=== PATIENT | female | born 1980 | race Caucasian/White ===

== ENCOUNTER 2016-10-18 22:25 | Emergency (ER) | payer OTHER ==
[2016-10-19 01:25] LABS: BASOPHIL % 0.7 % (0-2); PLATELET COUNT 242 x10^3mcL (130-400)
[2016-10-19 01:26] LABS: RED CELL DISTRIBUTION WIDTH 15.2 % (11.5-14.5)
[2016-10-19 01:33] LABS: CALCIUM 8.7 mg/dL (8.5-10.1); CARBON DIOXIDE 26.6 mmol/L (21-32); CHLORIDE SERUM 105 mmol/L (98-107); CREATININE SERUM 0.5 mg/dL (0.6-1.0); GFR1 > 60 mL/min; GLUCOSE SERUM 82 mg/dL (74-106); POTASSIUM SERUM 3.9 mmol/L (3.5-5.1); SODIUM SERUM 139 mmol/L (136-145)
[2016-10-19 01:35] LABS: T3 TOTAL 1.02 ng/mL
[2016-10-19 01:38] LABS: ALBUMIN 3.1 g/dL (3.4-5.0); ALKALINE PHOSPHATASE 80 U/L (46-116); ALT/SGPT 15 U/L (14-59); AST/SGOT 13 U/L (15-37); BILIRUBIN TOTAL 0.6 mg/dL (0.20-1.00); CHOLESTEROL 128 mg/dL (<200); HDL CHOLESTEROL 63 mg/dL (40-60); LIPASE 219 IU/L (73-393); TOTAL PROTEIN, SERUM 6.8 g/dL (6.4-8.2); TRIGLYCERIDES 42 mg/dL (<150)
[2016-10-19 01:42] LABS: FREE THYROXINE INDEX 1.8 ug/dL (1.4-4.5); T4(THYROXINE) 5.2 ug/dL (4.7-13.3)
[2016-10-19 02:30] LABS: UA SPECIFIC GRAVITY 1.015 (1.005-1.035); urine erythrocyte NEGATIVE (NEGATIVE)
[2016-10-19 02:37] LABS: microscopic required? YES
[2016-10-19 05:34] VITALS: BP 128/80
== END 2016-10-19 05:34 | disposition home or self-care (01) ==
LOC: ED 22:25
PROVIDERS: Specialist
DX: K59.00 Constipation, unspecified (principal)
CPT/HCPCS: 83880; 84439; J1885; J3010; Q0092

== ENCOUNTER 2018-12-09 23:57 | Emergency (ER) | payer OTHER ==
[~2018-12-09] VITALS: Ht 149.9 cm; Wt 41.4 kg
[2018-12-10] VITALS: Ht 149.9 cm; Wt 41.4 kg
[2018-12-10 01:15] LABS: BASOPHIL % 1.7 % (0-2); PLATELET COUNT 354 x10^3mcL (130-400)
[2018-12-10 01:20] LABS: RED CELL DISTRIBUTION WIDTH 15.3 % (11.5-14.5)
[2018-12-10 01:24] LABS: CALCIUM 8.2 mg/dL (8.5-10.1); CARBON DIOXIDE 25.9 mmol/L (21-32); CHLORIDE SERUM 109 mmol/L (98-107); CREATININE SERUM 0.6 mg/dL (0.6-1.0); GFR1 > 60 mL/min; GLUCOSE SERUM 103 mg/dL (74-106); POTASSIUM SERUM 3.8 mmol/L (3.5-5.1); SODIUM SERUM 144 mmol/L (136-145)
[2018-12-10 01:29] LABS: ALKALINE PHOSPHATASE 71 U/L (46-116); ALT/SGPT 16 U/L (14-59); AST/SGOT 10 U/L (15-37); BILIRUBIN TOTAL 0.73 mg/dL (0.20-1.00); LIPASE 136 IU/L (73-393); TOTAL PROTEIN, SERUM 7.1 g/dL (6.4-8.2)
[2018-12-10 01:32] LABS: ALBUMIN 3.1 g/dL (3.4-5.0)
[2018-12-10 02:47] VITALS: BP 135/68
== END 2018-12-10 02:47 | disposition home or self-care (01) ==
LOC: ED 23:57
DX: R10.84 Generalized abdominal pain (principal); M54.5 Low back pain; F17.210 Nicotine dependence, cigarettes, uncomplicated
CPT/HCPCS: 99406; J1885; Q0092

== ENCOUNTER 2018-12-11 06:13 | Emergency (ER) | payer OTHER ==
[~2018-12-11] VITALS: Ht 149.9 cm; Wt 40.5 kg
[2018-12-11 06:18] VITALS: Ht 149.9 cm; Wt 40.5 kg
[2018-12-11 07:39] LABS: BASOPHIL % 0.5 % (0-2); PLATELET COUNT 332 x10^3mcL (130-400)
[2018-12-11 07:51] LABS: RED CELL DISTRIBUTION WIDTH 15.2 % (11.5-14.5)
[2018-12-11 08:31] LABS: CALCIUM 7.8 mg/dL (8.5-10.1); CARBON DIOXIDE 27.3 mmol/L (21-32); CHLORIDE SERUM 104 mmol/L (98-107); CREATININE SERUM 0.5 mg/dL (0.6-1.0); GFR1 > 60 mL/min; GLUCOSE SERUM 97 mg/dL (74-106); POTASSIUM SERUM 3.6 mmol/L (3.5-5.1); SODIUM SERUM 141 mmol/L (136-145)
[2018-12-11 08:37] LABS: ALKALINE PHOSPHATASE 62 U/L (46-116); ALT/SGPT 14 U/L (14-59); AST/SGOT 12 U/L (15-37); BILIRUBIN TOTAL 0.8 mg/dL (0.20-1.00); LIPASE 86 IU/L (73-393); TOTAL PROTEIN, SERUM 7.1 g/dL (6.4-8.2)
[2018-12-11 11:40] VITALS: BP 128/64
== END 2018-12-11 11:40 | disposition home or self-care (01) ==
LOC: ED 06:13
PROVIDERS: Emergency Medicine
DX: K59.00 Constipation, unspecified (principal)
CPT/HCPCS: 36415; J1885; J2270

== ENCOUNTER 2018-12-28 01:39 | Emergency (ER) | payer OTHER ==
[~2018-12-28] VITALS: Ht 149.9 cm; Wt 39.9 kg
[2018-12-28 01:43] VITALS: Ht 149.9 cm; Wt 39.9 kg
[2018-12-28 02:47] LABS: microscopic required? NO
[2018-12-28 02:52] LABS: urine erythrocyte NEGATIVE (NEGATIVE)
[2018-12-28 02:59] LABS: BASOPHIL % 0.2 % (0-2)
[2018-12-28 03:00] LABS: PLATELET COUNT 414 x10^3mcL (130-400)
[2018-12-28 03:10] LABS: CALCIUM 8.2 mg/dL (8.5-10.1); CHLORIDE SERUM 106 mmol/L (98-107); CREATININE SERUM 0.6 mg/dL (0.6-1.0); GFR1 > 60 mL/min; GLUCOSE SERUM 101 mg/dL (74-106); POTASSIUM SERUM 3.4 mmol/L (3.5-5.1); SODIUM SERUM 140 mmol/L (136-145)
[2018-12-28 03:14] LABS: ALBUMIN 3.2 g/dL (3.4-5.0); ALKALINE PHOSPHATASE 59 U/L (46-116); ALT/SGPT 13 U/L (14-59); AMYLASE 39 U/L (25-115); AST/SGOT 12 U/L (15-37); BILIRUBIN TOTAL 2.64 mg/dL (0.20-1.00); LIPASE 93 IU/L (73-393); TOTAL PROTEIN, SERUM 6.8 g/dL (6.4-8.2)
[2018-12-28 04:44] VITALS: BP 128/69
== END 2018-12-28 04:44 | disposition home or self-care (01) ==
LOC: ED 01:39
PROVIDERS: Emergency Medicine
DX: S39.012A Strain of muscle, fascia and tendon of lower back, initial encounter (principal); K21.9 Gastro-esophageal reflux disease without esophagitis; X58.XXXA Exposure to other specified factors, initial encounter; Y93.89 Activity, other specified; Y92.89 Other specified places as the place of occurrence of the external cause; Y99.8 Other external cause status
CPT/HCPCS: C9113; J1885; J7030

== ENCOUNTER 2019-04-17 11:04 | Emergency (ER) | payer OTHER ==
[~2019-04-17] VITALS: Ht 149.9 cm; Wt 35.8 kg
[2019-04-17 11:10] VITALS: Ht 149.9 cm; Wt 35.8 kg
[2019-04-17 12:22] LABS: BASOPHIL % 1.4 % (0-2)
[2019-04-17 12:26] LABS: PLATELET COUNT 456 x10^3mcL (130-400); RED CELL DISTRIBUTION WIDTH 19.9 % (11.5-14.5)
[2019-04-17 12:53] LABS: AMPHETAMINE QUAL UR NONE DETECTED (See below)
[2019-04-17 14:17] LABS: CARBON DIOXIDE 24.4 mmol/L (21-32); CREATININE SERUM 1.1 mg/dL (0.6-1.0)
[2019-04-17 14:21] LABS: ALBUMIN 2.9 g/dL (3.4-5.0); BILIRUBIN TOTAL 0.4 mg/dL (0.20-1.00); TOTAL PROTEIN, SERUM 6.8 g/dL (6.4-8.2)
[2019-04-17 15:32] VITALS: BP 129/69
== END 2019-04-17 15:32 | disposition home or self-care (01) ==
LOC: ED 11:04
PROVIDERS: Emergency Medicine
DX: R10.84 Generalized abdominal pain (principal); E87.6 Hypokalemia
CPT/HCPCS: 36415; J1885

== ENCOUNTER 2019-04-22 10:41 | Inpatient (IN) | payer OTHER ==
[~2019-04-22] VITALS: Ht 149.9 cm; Wt 36.4 kg
[2019-04-22 11:21] LABS: BILIRUBIN TOTAL 0.24 mg/dL (0.20-1.00); CALCIUM 10.1 mg/dL (8.5-10.1); CARBON DIOXIDE 28.8 mmol/L (21-32); CREATININE SERUM 1.5 mg/dL (0.6-1.0); TOTAL PROTEIN, SERUM 7.2 g/dL (6.4-8.2)
[2019-04-22 11:22] LABS: ALBUMIN 2.9 g/dL (3.4-5.0)
[2019-04-22 11:23] LABS: POTASSIUM SERUM 2.7 mmol/L (3.5-5.1)
[2019-04-22 11:46] LABS: BASOPHIL % 0.4 % (0-2)
[2019-04-22 11:55] LABS: PLATELET COUNT 437 x10^3mcL (130-400)
[2019-04-22 12:12] LABS: PHOSPHOROUS 4.2 mg/dL (2.5-4.9); T4(THYROXINE) 7.3 ug/dL (4.7-13.3)
--- NOTE | 2019-04-22 12:12 | NUR ---
PT ADMITTED (TELE/224B). REPORT CALLED TO JESSEE MILTON. OPPORTUNITY GIVEN TO ASK QUESTIONS. PT BEING TRANSPORTED TO FLOOR BY RN AND EMT. FLOOR RN AWARE [facility] MED ADMINISTRATION PENDING POTASSIUM MED COMPLETION.
--- NOTE | 2019-04-22 12:50 | NUR ---
RECEIVED PT FROM E.R. REPORT GIVEN BY KARINE RAMIREZ. PT ARRIVED BY GURNEY AND AMBULATED TO THE BED. PT HAS BEEN ADMITTED FOR HYPOKALEMIA AND ANOREXIA. VS: T 98.3, HR 84, RR 18, B/P 180/79, O2 SAT 94% ON R/A. NATALIA MUTAC, BELTING CUTTER AWARE OF B/P OF 189/79. NO NEW ORDERS WERE GIVEN. PT WILL BE TREATED FOR PAIN AND NAUSEA. PT IS AAOX4. TELE [address] READING NSR. RESP EVEN AND UNLABORED. LUNG SOUNDS CTA BILATERALLY. ON R/A. NO COUGH NOTED. PERIPHERAL PULSES MODERATELY PALPABLE. NO EDEMA. CAP REFILL < 3 SECS. SKIN WARM AND DRY. ABDOMEN SOFT, FLAT, TENDER WITH C/O SHARP CONSTANT ABDOMINAL PAIN 6/10. PT HAS C/O NAUSEA AND VOMITING. BOWEL SOUNDS HYPOACTIVE. PT HAS BROWNISH DISCOLORATION TO ABDOMEN THAT PT STATES IS FROM USING THE HEATING PAD ON IT. IV CATH TO RAC WITH FLUIDS RUNNING. SITE WNL. NO S/S OF INFECTION OR INFILTRATION. CALL LIGHT WITHIN REACH. WILL CONTINUE TO MONITOR. PT ORIENTED TO ROOM AND CALL LIGHT. WILL CONTINUE TO MONITOR.
[2019-04-22 13:25] VITALS: BP 180/79
--- NOTE | 2019-04-22 14:12 | NUR ---
TORADOL IVP GIVEN FOR SHARP CONSTANT ABDOMINAL PAIN 7/1O. PT REPOSITIONED FOR COMFORT. ZOFRAN IVP GIVEN FOR NAUSEA. RESP EVEN AND UNLABORED. PT DENIES C/P AND PRESSURE. CALL LIGHT WITHIN REACH. WILL CONTINUE TO MONITOR.
[2019-04-22 15:24] LABS: microscopic required? YES; urine erythrocyte NEGATIVE (NEGATIVE)
[2019-04-22 15:36] VITALS: BP 146/75
[2019-04-22 16:46] LABS: AMPHETAMINE QUAL UR NONE DETECTED (See below)
--- NOTE | 2019-04-22 17:45 | NUR ---
REPORTED TO NATALIA MODI NP THAT PT'S PAIN IS 7/10 AND TORADOL IVP HAS ALREADY BEEN GIVEN. RECEIVED ORDER FOR NORCO 5/325MG PO Q 6 HOURS PRN. ORDER NOTED AND CARRIED OUT. PT GIVEN NORCO 5/325MG PO FOR THROBBING ABDOMINAL PAIN /10. EXTRA FLUID GIVEN. PT REPOSTIONED FOR COMFORT. RESP EVEN AND UNLABORED. NO DISTRESS NOTED. CALL LIGHT WITHIN REACH.
--- NOTE | 2019-04-22 18:46 | NUR ---
PT IS AAOX4. TELE [address] READING NSR. IV CATH TO RAC PATENT WITH FLUIDS RUNNING. SITE WNL. NO S/S OF INFECTION OR INFILTRATION NOTED. PT DENIES PAIN AT THIS TIME. NO DISTRESS NOTED. CALL LIGHT WITHIN REACH.
--- NOTE | 2019-04-22 19:05 | NUR ---
RECEIVED REPORT FROM DAY SHIFT NURSE, JESSEE MILTON. PT IS AAOX4. SPEECH IS CLEAR. DENIES POWERS. ON TELE #21 READING NSR 84. DENIES CHEST PAIN/CHEST PRESSURE. PULSES ARE PALPABLE. NO EDEMA NOTED. BREATHING IS EVEN AND UNLABORED ON RA. LUNG SOUNDS CTA. DENIES SOB. ABD IS SOFT, NONDISTENDED, TENDER TO TOUCH. HYPOACTIVE BOWEL SOUNDS. DENIES N/V/D. VOIDS FREELY. DENIES DYSURIA. MILD GENERALIZED WEAKNESS. AMBULATORY. DISCOLORATION ON ABD. C/O 8/10 SHARP ABD PAIN. WILL MEDICATE PER MAR ORDER. IV TO RAC DRY AND INTACT. NO ERYTHEMA NOTED. BED IN LOWEST POSITION. CALL LIGHT WITHIN REACH. WILL CONTINUE TO MONITOR.
--- NOTE | 2019-04-22 19:23 | NUR ---
TORADOL IVP GIVEN FOR PAIN 09/15. RESP EVEN AND UNLABORED. CALL LIGHT WITHIN REACH.
[2019-04-22 20:31] VITALS: BP 152/75
--- NOTE | 2019-04-22 21:28 | NUR ---
PT IS C/O 11/15 SHARP PAIN ON ABD AND BACK. PAIN MEDICATION IS NOT DUE AT THIS TIME. SPOKE WITH DR GIMENEZ. AWAITING ORDERS. PT AWARE OF SPEAKING WITH . BREATHING IS EVEN AND UNLABORED ON RA. NO SIGNS OF RESP. DISTRESS. BED IN LOWEST POSITION. CALL LIGHT WITHIN REACH. WILL CONTINUE TO MONITOR.
--- NOTE | 2019-04-22 23:10 | NUR ---
NEW ORDERS FOR ABX FOR +UA. NO ADVERSE EFFECTS NOTED. NORCO ADMINISTERED AT THIS TIME FOR 10/15 PAIN ON ABD AND BACK. WILL REASSESS AND CHECK EFFECTIVENESS. BREATHING IS EVEN AND UNLABORED ON RA. NO SIGNS OF RESP. DISTRESS. HEATING PAD GIVEN FOR ABD. BED IN LOWEST POSITION. CALL LIGHT WITHIN REACH. WILL CONTINUE TO MONITOR.
--- NOTE | 2019-04-23 01:25 | NUR ---
PT C/O 10/15 SHARP ABD AND BACK PAIN. MEDICATED WITH TORADOL PRN PER JUN ORDER. WILL REASSESS AND CHECK EFFECTIVENESS. BREATHING IS EVEN AND UNLABORED ON RA. DENIES SOB. BED IN LOWEST POSITION. CALL LIGHT WITHIN REACH. WILL CONTINUE TO MONITOR.
--- NOTE | 2019-04-23 03:38 | NUR ---
PT IS RESTING COMFORTABLY IN BED WITH EYES CLOSED, BUT EASILY AROUSABLE WHEN SPOKEN TO. BREATHING IS EVEN AND UNLABORED ON RA. NO SIGNS OF RESP. DISTRESS. BED IN LOWEST POSITION. CALL LIGHT WITHIN REACH. WILL CONTINUE TO MONITOR.
[2019-04-23 05:09] VITALS: BP 94/58
--- NOTE | 2019-04-23 05:45 | NUR ---
PT SLEPT IN INTERVALS THROUGHOUT THE NIGHT AND COMPLIED WITH NURSING CARE WITH NO ACUTE EVENTS OCCURRING DURING THE SHIFT. COMFORT AND SAFETY MEASURES MAINTAINED. ALL NEEDS ASSESSED AND ATTENDED TO. WILL CONTINUE TO MONITOR AND ENDORSE CARE TO DAY SHIFT NURSE.
[2019-04-23 07:01] LABS: BASOPHIL % 0.8 % (0-2); PLATELET COUNT 304 x10^3mcL (130-400)
[2019-04-23 07:19] LABS: CARBON DIOXIDE 28.4 mmol/L (21-32); CHLORIDE SERUM 105 mmol/L (98-107); CREATININE SERUM 0.6 mg/dL (0.6-1.0); GFR1 > 60 mL/min; GLUCOSE SERUM 85 mg/dL (74-106); SODIUM SERUM 139 mmol/L (136-145)
[2019-04-23 07:21] LABS: POTASSIUM SERUM 2.5 mmol/L (3.5-5.1)
--- NOTE | 2019-04-23 07:28 | NUR ---
REPORTED TO NATALIA MODI, WILLIAM K+ = 2.5. RECEIVED ORDER FOR KCL 50 MEQ PO X1 NOW. ORDER NOTED AND CARRIED OUT. PT MADE AWARE.
--- NOTE | 2019-04-23 07:30 | NUR ---
PT IS AAOX4. TELE [address] READING NSR. IV CATH OT RAC PATENT WITH FLUIDS RUNNING. SITE WNL, NO S/S OF INFECTION OR INFILTRATION NOTED. PT DENIES ABDOMINAL PAIN AT THIS TIME. PT NOTED WITH POOR APPETITE. CALL LIGHT WITHIN REACH. BED IN LOWEST POSITION.
[2019-04-23 07:42] LABS: RED CELL DISTRIBUTION WIDTH 21.3 % (11.5-14.5)
--- NOTE | 2019-04-23 08:08 | NUR ---
KCL 40MEQ PO GIVEN FOR K+ = 2.5. PT DENIES C/P, PRESSURE, AND ABDOMINAL PAIN. SCHEDULED MEDS GIVEN AND TOLERATED WELL. NO DISTRESS NOTED AT THIS TIME. CALL LIGHT WITHIN REACH.
[2019-04-23 08:28] VITALS: BP 97/56
--- NOTE | 2019-04-23 11:03 | NUR ---
MAGNESIUM SULFATE IVPB GIVEN FOR MAG = 1.7. PT DENIES PAIN AT THIS TIME. HEATING PAD IN PLACE ABDOMEN AT THIS TIME.
[2019-04-23 11:49] LABS: burr cell (echinocyte) 1+; ovalocyte/elliptocyte 1+; rbc morphology (normal/abnorm) ABNORMAL (NORMAL)
[2019-04-23 12:08] VITALS: BP 94/53
[2019-04-23 12:30] VITALS: BP 141/90
--- NOTE | 2019-04-23 12:30 | NUR ---
FIRST UNIT OF 2 UNITS PRBC STARTED. VS: T 101.8, HR 91, RR 26, BP 141/90 (107). PT ON NONREBREATHER AT [address]PM[address] COOLING MEASURES IN PLACE. PT EDUCATED ON THE S/S OF BLOOD TRANSFUSION REACTION. PT VERBALIZED UNDERSTANDING. PT RECEIVING BREATHING TX AT THIS TIME. WILL CONTINUE TO MONITOR. CALL LIGHT WITHIN REACH.
--- NOTE | 2019-04-23 12:43 | NUR ---
PT STARTED ON OXIMIZER AT 5 LPM. PT O2 SAT =96%. WILL CONTINUE TO MONITOR.
--- NOTE | 2019-04-23 14:16 | NUR ---
NORCO PO GIVEN TO PT FOR ABDOMINAL PAIN 09/15. WARM COMPRESS IN PLACE. RESP EVEN AND UNLABORED. NO DISTRESS NOTED.
[2019-04-23 15:51] VITALS: BP 101/60
--- NOTE | 2019-04-23 16:15 | NUR ---
NORCO PO GIVEN TO PT FOR ABDOMINAL PAIN 09/15. WARM COMPRESS IN PLACE. RESP EVEN AND UNLABORED. NO DISTRESSN NOTED.
--- NOTE | 2019-04-23 18:16 | NUR ---
DR. CASTELLANOS MET WITH PT, PT TO HAVE EGD TOMORROW. PT AAOX4. RESP EVEN AND UNLABORED. NO DISTRESS NOTED. WILL ENDORSE ALL CARE TO NOC RN.
--- NOTE | 2019-04-23 18:25 | NUR ---
15 MIN OF BLOOD TRANSFUSION COMPLETED. VS; 99.2, 100, 27, 141/63, 98%. NO S/S OF TRANSFUSION REACTIONS NOTED. DENIES PAIN. PT IS AAOX4. OXIMIZER AT 5 LPM INTACT. IV CATH LH AND RH PATENT, WNL. TELE [address] READING AFIB WITH BPC AND DEPRESSED T WAVE. BLOOD TRANSFUSION INFUSING AT THIS TIME. CALL LIGHT WITHIN REACH. BED IN LOWEST POSTION.
[2019-04-23 18:50] LABS: IRON 12 ug/dL (50-170); TOTAL IRON BINDING CAPACITY 197 ug/dL (250-450)
--- NOTE | 2019-04-23 18:52 | NUR ---
PT GIVEN FLEETS ENEMA, REGLAN AND MOM AT THIS TIME.
--- NOTE | 2019-04-23 19:30 | NUR ---
PT SEEN, RESTING IN BED, ALERT AND ORIENTED, DENIES HEADACHE OR DIZZINESS, BREATHING EVEN AND UNLABORED, LUNG SOUNDS CLEAR, ON ROOM AIR WITH NO RESP DISTRESS NOTED, ON TELE#21 NSR, DENIES CHEST PAIN, IVF INFUSING WELL, PULSES PALPABLE, NO EDEMA NOTED, GENERALIZED WEAKNESS BUT ABLE TO AMBULATE, ABD SOFT AND FLAT WITH ACTIVE BS, HAD MULTIPLE BM AFTER ENEMA, VOIDING FREELY, NO DISTRESS NOTED, WILL KEEP TO MONITOR.
[2019-04-23 20:37] VITALS: BP 108/59
[2019-04-24] VITALS (9 sets, daily range): BP systolic 91–122; BP diastolic 49–70
--- NOTE | 2019-04-24 05:52 | NUR ---
PT ASLEEP BUT EASILY AROUSABLE, SLEPT MOST OF NIGHT, NPO AFTER MN FOR AM EGD, IVF INFUSING WELL, NSR ON SUPERVISOR ELECTROLYTIC TINNING, NO C/O OF ABD PAIN OR N/V DURING THE SHIFT, NO DISTRESS NOTED, WILL KEEP TO MONITOR.
--- NOTE | 2019-04-24 07:18 | NUR ---
BEDSIDE HANDOFF REPORT GIVEN TO DHRUV-RN, ALL QUESTIONS ANSWERED AND CONCERNS ADDRESSED. PT IS AWAKE AND RESTING IN BED, DENIES ANY PAIN OR DISCOMFORT AT THIS TIME, POC DISCUSSED.
--- NOTE | 2019-04-24 07:40 | NUR ---
PATIENT SITTING UP IN BED A&O X4, DENIES ANY PAIN AT THIS TIME. IV ON RAC PATENT AND INTACT NO REDNESS OR EDEMA. NO S/S OF ANY RESPIRATORY DISTRESS, CHEST RISE EQUAL AND UNLABORED. ALL QUESTIONS AND CONCERNS AT THIS TIME. PATIENT NPO FOR PROCEDURE. BED IN LOWEST POSITION CALL LIGHT WITHIN REACH. WILL CONTINUE TO MONITOR.
[2019-04-24 09:27] LABS: BASOPHIL % 1.1 % (0-2)
[2019-04-24 09:29] LABS: PLATELET COUNT 304 x10^3mcL (130-400)
[2019-04-24 09:32] LABS: RED CELL DISTRIBUTION WIDTH 21.6 % (11.5-14.5)
--- NOTE | 2019-04-24 09:45 | NUR ---
Administered scheduled meds per mar patient tolerated well no adverse reactions noted. All needs attended to at this time. Patient denies any abd pain at this time. No s/s of any acute distress. Bed in lowest position call liht within reach. Will continue to monitor.
--- NOTE | 2019-04-24 10:09 | NUR ---
NATALIA BINDERY OPERATOR NOTIFIED OG HGB 6.3, HCT 19 PER NATALIA TO TRANSFUSE BLOOD. PATIENT TEACHING GIVEN PATIENT VERBALIZED UNDERSTANDING WILL PROCEED WITH ORDER.
--- NOTE | 2019-04-24 10:30 | NUR ---
PATIENT DOWN TO G.I. FOR EGD
[2019-04-24 10:33] LABS: CARBON DIOXIDE 28 mmol/L (21-32); CHLORIDE SERUM 112 mmol/L (98-107); GLUCOSE SERUM 86 mg/dL (74-106); POTASSIUM SERUM 3.6 mmol/L (3.5-5.1); SODIUM SERUM 145 mmol/L (136-145)
[2019-04-24 10:34] LABS: CALCIUM 7.3 mg/dL (8.5-10.1); CREATININE SERUM 0.4 mg/dL (0.6-1.0); GFR1 > 60 mL/min; MAGNESIUM 1.6 mg/dL (1.8-2.4)
[2019-04-24 10:58] LABS: ovalocyte/elliptocyte 1+; rbc morphology (normal/abnorm) ABNORMAL (NORMAL)
--- NOTE | 2019-04-24 12:00 | NUR ---
PATIENT BACK FROM EGD V/S STABLE NO ACUTE DISTRESS NOTED. PATIENT DENIES ANY PAIN AT THIS TIME. ALL QUESTIONS AND CONCERNS ADDRESSED WITH SISTER WELL. BED IN LOWEST POSITION CALL LIGHT WITHIN REACH. WILL CONTINUE TO MONITOR.
--- NOTE | 2019-04-24 12:43 | NUR ---
DR CASTELLANOS UPDATING PATIENT ON CARE WITH SISTER AT BEDSIDE
--- NOTE | 2019-04-24 14:35 | NUR ---
PATIENT LYING IN BED WITH EYES CLOSED, DENIES N/V TOLERATED LUNCH OF CLEAR LIQUIDS WELL. ALL NEEDS ATTENDED TO. BED IN LOWEST POSITION CALL LIGHT WITHIN REACH. WILL CONTINUE TO MONITOR.
--- NOTE | 2019-04-24 15:38 | NUR ---
STARTED BLOOD TRANSFUSION VERIFIED WITH TOMY MILTON V/S STABLE WILL ASSESS FOR 15 MIN. EDUCATED PATIENT ON SIGNS TO LOOK FOR AND REPORT. ALL NEEDS ATTENDED TO AT THIS TIME.
--- NOTE | 2019-04-24 15:53 | NUR ---
15 MIN POST INFUSION START V/S STABLE NO S/S OF ANY ALLERGIC REACTION PATIENT LYING IN BED DENIES ANY PAIN OR N/V AT THIS TIME. FAMILY AT BEDSIDE. BED IN LOWEST POSITION CALL LIGHT WITHIN REACH. WILL CONTINUE TO MONITOR.
--- NOTE | 2019-04-24 16:20 | NUR ---
REPORTED HR 108 AND BP 91/45 TO NATALIA LOCOMOTIVE CRANE OPERATOR HELPER. NO NEW ORDERS AT THS TIME. WILL CONTINUE TO MONITOR
--- NOTE | 2019-04-24 17:58 | NUR ---
PATIENT MRSA CULTURE POSITIVE REPORTED TO NATLAIA THOMAS . PER NATALIA START ON HEBICLENS AND BECTROBAN BID. READ BACK AND CONFIRMED WILL CARRY ORDER OUT.
--- NOTE | 2019-04-24 18:37 | NUR ---
TRANSFUSION COMPLETE V/S STABLE PATIENT DENIES ANY REACTIONS NONE NOTED. EDUCATED FAMILY ON MRSA PRECAUTIONS FAMILY VERBALIZED UNDERSTANDING. IV PATENT AND INTACT NO REDNESS OR EDEMA. TELE MONITOR 21 ATTATCHED PATIENT DENIES ANY CHEST PAIN. NO S/S OF ANY RESPIRATORY DISTRESS, CHEST RISE EQUAL AND UNLABORED 100% ON RA. PATIENT LYING IN BED WITH EYES CLOSED. FAMILY AT BEDSIDE. ALL QUESTIONS AND CONCERNS ADDRESSED. SAFETY PRECAUTIONS IN PLACE. WILL ENDORSE CARE TO NIGHT NURSE.
--- NOTE | 2019-04-24 19:05 | NUR ---
REPORT RECEIVED FROM DAY SHIFT RN. PATIENT WAS SEEN RESTING COMFORTABLY IN BED W/ FAMILY AT BEDSIDE. NO DISTRESS NOTED. BREATHING EVEN AND UNLABORED ON ROOM AIR. NO SOB OR RESP DISTRESS. DENIES DIZZINESS AND HEADACHE. NO C/O PAIN. DENIES CHEST PAIN/PRESSURE. TELE 21. IV TO THE RAC INFUSING MAGNESIUM WELL. PATENT AND INTACT. NO REDNESS OR SWELLING NOTED. 1 UNIT OF PRBCS FINISHED DURING DAY SHIFT. AWAITING H/H LAB DRAW. COMFORT AND SAFETY MEASURES IN PLACE. BED IS LOCKED AND IN THE LOWEST POSITION. SIDE RAILS UP X2. CONTACT PRECAUTIONS IN PLACE. CALL LIGHT IS WITHIN REACH. WILL CONTINUE TO MONITOR.
--- NOTE | 2019-04-24 20:17 | NUR ---
AFTER 1 UNITS OF PRBCS, H/H IS 9.05/06. WILL NOTIFY DR MAI.
--- NOTE | 2019-04-25 00:11 | NUR ---
IN TO GIVE MIDNIGHT MED. PATIENT EASILY AROUSBLE. DENIES PAIN. BREATHING EVEN AND UNLABORED ON ROOM AIR. NO SOB NOTED. IVF INFUSING WELL. SAFETY MEASURES IN PLACE. CALL LIGHT IS WITHIN REACH. CALL LIGHT IS WITHIN REACH.
--- NOTE | 2019-04-25 02:15 | NUR ---
PATIENT ARRIVED VIA GUERNEY FROM ED ACCOMPANIED BY ED STAFF, NURSE, AND , CHRISSY. BELONGINGS AT BEDSIDE. ON DROPLET PRECAUTIONS FOR INFLUENZA B (+). PATIENT'S REPORTED PATIENT RECEIVED THE FLU VACCINE 4-5 WEEKS AGO. A/OX4, ABLE TO MAKE NEEDS KNOWN W/ CLEAR AND APPROPIATE SPEECH. NO FACIAL DROOP NOTED. DENIES DIZZINESS AND HEADACHE. TELE #12 READING SINUS TACH AT 103. DENIES CHEST PAIN/PRESSURE. PULSES PALPABLE. NO EDEMA NOTED. PATIENT'S SKIN IN PALE, COOL/MOIST TO TOUCH. PER , PATIENT LOOKS BETTER THAN WHEN HE CAME. GENERALIZED WEAKNESS NOTED. PER , PATIENT FELL LAST NIGHT TRYING TO GET OUT OF BED. PER , PATIENT HAS BEEN HAVING POOR APPETITE. PATIENT DENIES N/V. BREATHING EVEN AND UNLABORED ON 4L NC. NO SOB OR RESP DISTRESS NOTED. IV TO THE RH, 20G. PATENT AND INTACT. NO REDNESS OR SWELLING NOTED. WILL STAY THE NIGHT. OFFERED MASK, REFUSED. ORIENTED BOTH AND PATIENT TO ROOM, CALL LIGHT SYSTEM, AND BED CONTROLS. COMFORT AND SAFETY MEASURES IN PLACE. BED IS LOCKED AND IN THE LOWEST POSITION. SIDE RAILS UP X2. CALL LIGHT WITHIN REACH. WILL CONTINUE TO MONITOR
--- NOTE | 2019-04-25 04:31 | NUR ---
RESTING IN BED W/ EYES CLOSED. NO DISTRESS NOTED. IVF INFUSING WELL. PATENT AND INTACT. DENIES PAIN. BREATHING EVEN AND UNLABORED ON ROOM AIR. NO SOB NOTED. SAFETY MEAURES IN PLACE. CALL LIGHT WITHIN REACH. WILL CONTINUE TO MONITOR.
[2019-04-25 04:50] VITALS: BP 128/71
--- NOTE | 2019-04-25 06:20 | NUR ---
RESTED IN LONG INTERVALS THROUGHOUT THE NIGHT. NO ACUTE CHANGES NOTED. BREATHING EVEN AND UNLABORED ON ROOM AIR. NO SOB NOTED. NO DISTRESS NOTED. DENIES PAIN. DENIES CP. IV TO THE RAC INFUSING WELL. PATENT AND INTACT. NO REDNESS OR SWELLING NOTED. KPAD TO ABD. ALL NEEDS AND CONCERNS ADDRESSED. SAFETY MEASURES IN PLACE. WILL ENDORSE CARE TO DAY SHIFT RN.
--- NOTE | 2019-04-25 07:25 | NUR ---
RECEIVED PT FROM BOTTLE TESTER, ASSESSED AND DOCUMENTED. DENIES ANY PAIN THIS TIME. STABLE. SAFTEY PRECAUTIONS ARE IN PLACE. WILL MONITOR.
[2019-04-25 08:36] VITALS: BP 112/65
[2019-04-25 12:56] VITALS: BP 106/61
--- NOTE | 2019-04-25 13:00 | NUR ---
PT RESTING IN BED COMFORTABLY. DENIES PAIN THIS TIME. HAD LUNCH. STABLE.
--- NOTE | 2019-04-25 13:41 | NUR ---
Initial Nutrition Assessment: /A TELMA LOREDO IA HR Dx: Hypokalemia, anorexia with weight loss PMHx: abdominal pain PSHx: she states when she was a baby she had some heart surgery done. Labs: ALB 2.9L, MG 1.6L, HGB 9.1L Meds: norco, reglan, Tylenol, zofran Diet: full liquid diet PO intake since admission: (04/24) dinner, breakfast 0%, lunch 25%, (04/23) breakfast 80%, lunch, dinner 0% Ht: 149.86 cm (59") Wt: 36.4 kg (80#) BMI: 16.2 kg/m2 Bed scale: 80.5# IBW: 95# (43 kg) %IBW: 84 UBW: 96# Age: 38/F Food Allergies: NKFA Skin: abd discoloration Fredrick: 18 Edema: none GI: Last BM: 04/23 Per H&P, Pt is a 38-year old female who has a 4 day history of increase in abdominal pain. According to patient for a couple months now she has been losing weight. Patient states that she recently went to her PCP and referred her out to GI however, referral is still pending. Patient states that her baseline weight is 102lbs RD Note (04/25): Patient was alert and oriented and said that her appetite is coming back slowly. Patient denied any N/V/D/C at this time. Patient is willing to drink ONS Ensure and was requesting ONS Ensure clear at least once a day. Per EGD/ colonoscopy report (04/24), pt has large prepyloric ulcer, probably benign, most likely d/t NSAID use. FNS received consult for 'failure to thrive, nutritional supplements between meals'. Problem with: N/V/D/C: none Problems with: Chewing: Swallowing: none Current appetite: poor Recent wt change: lost 16# x 6 months %wt change: 16 Vitamin/Supplement use: none Special diet at home: Regular Physical activity: sedentary Nutrition education given: PO was encouraged. [facility] handout on 'High calorie, high protein nutrition therapy' was provided. Food-drug interactions: Education given: Estimated Nutritional Needs Based on current body weight (36.6 kg) Energy: 5646-3289 kcal/day (35-40 kcal/kg for malnutrition) Protein: 44-55 g/day (1.2-1.5 g/kg for malnutrition) Fluid: 5291-5175 mL/day (1 mL/kcal) Nutrition Diagnosis: 1. Malnutrition related to chronic poor PO as evidenced by BMI 16.2 kg/m2, unintentional weight loss. Intervention 1. Recommend continuing full liquid diet. 2. Recommend ONS Ensure TID. This will provide additional 1050 kcal and 60g protein. Discussed with WILLIAM Cook. Monitor/Evaluate Goal: PO intake at least 75% of estimated needs Monitor: PO intake, Labs, GI function F/U in 2-3 days as high risk 04/27-
--- NOTE | 2019-04-25 13:41 | NUR ---
1. Recommend continuing full liquid diet. 2. Recommend ONS Ensure TID. This will provide additional 1050 kcal and 60g protein. Discussed with WILLIAM Cook.
[2019-04-25 17:32] VITALS: BP 121/77
--- NOTE | 2019-04-25 19:00 | NUR ---
PT RESTING IN BED COMFORTABLY, STABLE. GAVE REPORT TO OCULARIST NURSE. DENIES ANY PAIN.
--- NOTE | 2019-04-25 19:15 | NUR ---
RECIEVED PT RESTING IN BED WITH NO ACUTE DISTRESS NOTED AT THIS TIME, ASSESSMENT PERFORMED AT THIS TIME, PT IS A/OX4 NO COMPLAINTS OF POWERS OR DIZZINESS AT THIS TIME, PT DENIES PAIN OR SOB AT THIS TIME, TELE 21 NSR, IV TO THE RAC 20G INFUSING D5/ 1/2 NS WITH 40 MEQ K+ AT 40ML PER HOUR, ALL PT NEEDS ATTENDED TO, SAFETY PRECAUTIONS IN PLACE, WILL CONTINUE TO MONITOR
[2019-04-25 22:15] VITALS: BP 134/75
--- NOTE | 2019-04-26 00:14 | NUR ---
PT RESTING IN BED WITH NO ACUTE DISTRESS AT THIS TIME, PT DENIES PAIN OR SOB, RESPIRATIONS EVEN AND UNLABORED, SAFETY PRECAUTIONS ON PLACE, WILL COTNINUE TO MONITOR
[2019-04-26 05:51] VITALS: BP 109/63
--- NOTE | 2019-04-26 06:28 | NUR ---
PT RESTED THROUGH THE NIGHT WITH NO ACUTE DISTRESS NOTED DURING CARE, PT DENIED ABD PAIN OR SOB THROUGH NIGHT, PT AMBULATED TO THE BATHROOM WITH STEADY GAIT AND HAD TWO VOIDS, VSS, ALL NEEDS ATTENDED TO, SAFETY PRECAUTIONS REMAINED IN PLACE, WILL CONTINUE TO MONITOR AND ENDORSE CARE
--- NOTE | 2019-04-26 07:20 | NUR ---
RECEIVED PT IN BED, ASSESSED AND DOCUMENTED. DENIES ANY PAIN THIS TIME. STABLE. SAFTEY PRECAUTIONS ARE IN PLACE. WILL MONITOR.
[2019-04-26 08:50] VITALS: BP 114/65
[2019-04-26 09:02] LABS: BASOPHIL % 0.3 % (0-2); PLATELET COUNT 344 x10^3mcL (130-400)
[2019-04-26] MEDS ORDERED: FER300 PO (09:08)
[2019-04-26] MEDS ORDERED: ELA25 PO (09:08)
[2019-04-26] MEDS ORDERED: LAC30L PO (09:09)
[2019-04-26] MEDS ORDERED: BACO TOP (09:10)
[2019-04-26] MEDS ORDERED: CARL PO (09:10)
[2019-04-26] MEDS ORDERED: PRI20 PO (09:10)
[2019-04-26 09:12] LABS: RED CELL DISTRIBUTION WIDTH 21.1 % (11.5-14.5)
--- NOTE | 2019-04-26 11:00 | NUR ---
PT IS AMBULATING TO THE RESTROOM WITH OUT ANY ASSISTANCE WITH STEADY GAIT. DENIES ANY PAIN. PT IS AWARE ABOUT SHE IS DISCHARGED. WAITING FOR HER MOTHER TO PICK HER UP. PT IS STABLE.
[2019-04-26 11:30] VITALS: BP 114/65
[2019-04-26 12:48] VITALS: BP 123/66
--- NOTE | 2019-04-26 13:25 | NUR ---
PT'S MOTHER CAME TO QUANTITATIVE STRATEGY ANALYST PT. DISCHARGE INSTRUCTIONS GIVEN, PB SIGNED AND SENT WITH PT. IV REMOVED AND DRESSING APPLIED. TELE REMOVED AND RETURNED. PT DENIES ANY PAIN. PRESCRIPTIONS SENT TO HER PHARMACY BY DOCTOR. OFFERED WHEELCHAIR BUT PT SAID SHE WANT TO WALK. DETACHER WALK WITH PT ACCOMPANIED BY HER MOTHER. PT DC HOME IN STABLE CONDITION.
[2019-04-30 15:22] VITALS: Ht 149.9 cm; Wt 36.4 kg
== END 2019-04-26 13:29 | disposition home or self-care (01) | DRG 241 ==
LOC: ED 10:41 → DU 11:45
PROVIDERS: Emergency Medicine; Internal Medicine Gastroenterology; ADMIT Internal Medicine
PROC: 0DB68ZX Excision of Stomach, Via Natural or Artificial Opening Endoscopic, Diagnostic (ICD-10-PCS; principal; 2019-04-24 12:00)
PROC: 30233N1 Transfusion of Nonautologous Red Blood Cells into Peripheral Vein, Percutaneous Approach (ICD-10-PCS; 2019-04-24 12:00)
DX: K25.9 Gastric ulcer, unspecified as acute or chronic, without hemorrhage or perforation (principal); E43 Unspecified severe protein-calorie malnutrition; K31.1 Adult hypertrophic pyloric stenosis; D64.9 Anemia, unspecified; E87.6 Hypokalemia; F17.210 Nicotine dependence, cigarettes, uncomplicated; K59.00 Constipation, unspecified; T39.395A Adverse effect of other nonsteroidal anti-inflammatory drugs [NSAID], initial encounter; K20.9 Esophagitis, unspecified; F41.9 Anxiety disorder, unspecified; Z80.9 Family history of malignant neoplasm, unspecified; Z71.6 Tobacco abuse counseling; Y92.89 Other specified places as the place of occurrence of the external cause
CPT/HCPCS: 43235; 88344; 99406; C9113; G0378; J0696; J1200; J1610; J1885; J2250; J2310; J2405; J2765; J2916; J3010; J3475; J3480; J3490; J7030; J7040; P9016; Q0163

== ENCOUNTER 2019-12-21 22:51 | Emergency (ER) | payer OTHER ==
[~2019-12-21] VITALS: Ht 149.9 cm; Wt 42.6 kg
[~2019-12-21 22:51] MED LIST: ACID REDUCER20 MG PO; BACO TOP; CARL PO; ELA25 PO; FER300 PO; LAC30L PO; PRI20 PO; TYLENOL ARTHRI650 MG PO
[2019-12-21 22:57] VITALS: BP 146/77; Ht 149.9 cm; Wt 42.6 kg
== END 2019-12-22 00:02 | disposition home or self-care (01) ==
LOC: ED 22:51
DX: H66.91 Otitis media, unspecified, right ear (principal); F17.200 Nicotine dependence, unspecified, uncomplicated
CPT/HCPCS: 99406

== ENCOUNTER 2020-01-01 18:59 | Emergency (ER) | payer OTHER ==
[~2020-01-01] VITALS: Ht 149.9 cm; Wt 42.2 kg
[2020-01-01 19:15] VITALS: BP 145/63; Ht 149.9 cm; Wt 42.2 kg
== END 2020-01-01 21:17 | disposition left against medical advice (07) ==
LOC: ED 18:59
DX: Z53.21 Procedure and treatment not carried out due to patient leaving prior to being seen by health care provider (principal)

== ENCOUNTER 2020-03-26 11:34 | Emergency (ER) | payer OTHER, SELFPAY ==
[~2020-03-26] VITALS: Ht 149.9 cm; Wt 40.8 kg
[~2020-03-26 11:34] MED LIST changes: +GOOD NEIGHBOR P20 M2 PO
[2020-03-26 11:35] VITALS: BP 126/72; Ht 149.9 cm; Wt 40.8 kg
== END 2020-03-26 12:36 | disposition home or self-care (01) ==
LOC: ED 11:34
DX: U07.1 COVID-19 (principal); F17.210 Nicotine dependence, cigarettes, uncomplicated; B34.9 Viral infection, unspecified
CPT/HCPCS: U0003